=== PATIENT | male | born 1940 | race Caucasian/White ===

== ENCOUNTER 2016-10-09 15:36 | Emergency (ER) | payer MEDICARE, BC ==
[~2016-10-09 15:36] MED LIST: ASPIR 8181 MG PO; DEPAKOTE500 MG PO; EXELON3 MG PO; IMDUR ER TAB 3030 MG PO; LOPRESSOR 25 MG25 MG PO; MIRALAX17 GM PO; PERCOCET 5-3251 EACH PO; PLAVIX 75 MG TA75 MG PO; PREVACID30 MG PO; RENVELA800 MG PO; SEROQUEL50 MG PO; TRAZODONE HCL100 MG PO
[2016-10-09 16:57] LABS: HEMOGLOBIN 11.1 gm/dl (14.0-17.5); RED BLOOD COUNT 3.74 M/UL (4.20-5.50); WHITE BLOOD COUNT 7.5 K/UL (4.5-11.0)
[2017-02-01] MEDS ORDERED: RANITIDINE HCL300 M1 PO (23:07)
[2017-02-01] MEDS ORDERED: BUSPIRONE HCL15 MG PO (23:08)
[2017-02-01] MEDS ORDERED: DULOXETINE HCL60 MG PO (23:09)
[2017-02-01] MEDS ORDERED: CLARITIN10 M1 PO (23:10)
[2017-02-01] MEDS ORDERED: KLONOPIN TAB 00.5 MG PO (23:11)
== END 2016-10-09 19:55 | disposition short-term general hospital (02) ==
LOC: ER1 15:36
PROVIDERS: Internal Medicine Cardiovascular Disease
DX: R41.82 Altered mental status, unspecified (principal); I12.0 Hypertensive chronic kidney disease with stage 5 chronic kidney disease or end stage renal disease; N18.6 End stage renal disease; E11.22 Type 2 diabetes mellitus with diabetic chronic kidney disease; Z99.2 Dependence on renal dialysis
CPT/HCPCS: 70450; 71010; 80053; 82140; 83605; 83690; 83880; 84439; 84443; 84484; 85025; 85610; 85730; 87040; 93005; 96361; 96374; 96375; 99285; J0696; J2310; J3370; J7040; J7050